=== PATIENT | male | born 1995 | race Hispanic/Latino ===

== ENCOUNTER 2023-08-05 18:21 | Emergency (ER) | payer OTHER ==
[2023-08-05] MEDS ORDERED: Proparacaine 0.5% Opth 15 ML BOT ONE (18:34)
[2023-08-05] MEDS ORDERED: Fluorescein Opthalmic Strip ONE (19:59)
== END 2023-08-05 20:19 | disposition home or self-care (01) ==
LOC: ERS 18:21
DX: H10.212 Acute toxic conjunctivitis, left eye (principal)
CPT/HCPCS: 99283